=== PATIENT | female | born 1960 | race Caucasian/White ===

== ENCOUNTER → 2017-06-18 | Outpatient (CLI) | payer MEDICAID ==
[~2017-06-18] MED LIST: BUTA1CAP57 PO; CARB1TAB2 PO; CLON1TAB PO; CYCL-259 PO; ESTR0.6246 PO; MEPE50TA PO
== END | disposition home or self-care (01) ==
LOC: CFH 15:26
PROVIDERS: ATTEND Psychiatry & Neurology Neurology
DX: M50.323 Other cervical disc degeneration at C6-C7 level (principal); M48.02 Spinal stenosis, cervical region; M25.78 Osteophyte, vertebrae
CPT/HCPCS: 72141

== ENCOUNTER 2018-06-17 04:33 | Emergency (ER) | payer MEDICAID ==
[~2018-06-17] VITALS: Ht 154.9 cm; Wt 55.2 kg
[2018-06-17 04:35] VITALS: BP 176/73
[2018-06-17] MEDS ORDERED: DEXAMETHASONE 4 MG TABLET PO ONE (05:00)
[2018-06-17] MEDS ORDERED: DEXAMETHASONE 4 MG TABLET ONE (05:15)
== END 2018-06-17 05:23 | disposition home or self-care (01) ==
LOC: ED 05:17
DX: J20.9 Acute bronchitis, unspecified (principal); B96.89 Other specified bacterial agents as the cause of diseases classified elsewhere; J01.10 Acute frontal sinusitis, unspecified; G43.909 Migraine, unspecified, not intractable, without status migrainosus; J44.9 Chronic obstructive pulmonary disease, unspecified; F17.200 Nicotine dependence, unspecified, uncomplicated; Z88.1 Allergy status to other antibiotic agents; Z88.8 Allergy status to other drugs, medicaments and biological substances; Z90.710 Acquired absence of both cervix and uterus
CPT/HCPCS: 99283